=== PATIENT | female | born 1970 | race Caucasian/White ===

== ENCOUNTER 2020-05-22 13:41 | Emergency (ER) | payer OTHER, SELFPAY ==
[~2020-05-22] VITALS: Ht 167.6 cm; Wt 76.2 kg
--- NOTE | 2020-05-22 13:43 | NUR ---
BROUGHT TO TENT AND TRIAGED. AWAITING DR VISIT IN TENT
[2020-05-22 13:45] VITALS: BP_SYST 119
--- NOTE | 2020-05-22 13:50 | NUR ---
Pt in the tent, A&Ox4, pt presents to ER with cough congestion and bodyaches, pt states he was exposed to covid , skin pink and warm, cap refill <3.
--- NOTE | 2020-05-22 14:19 | NUR ---
DR COHEN OUT TO EVALUATE PT IN TENT
[2020-05-22 14:30] VITALS: BP_SYST 119
--- NOTE | 2020-05-22 14:45 | NUR ---
Patient given written and verbal discharge instructions and verbalizes understanding. ER MD discussed with patient the results and treatment provided. Patient in stable condition. ID arm band removed. Rx of Zinc, Azithromycin and Prednisone given. Patient educated on pain management and to follow up with PMD. Pain Scale 0/10 . Opportunity for questions provided and answered. Medication side effect fact sheet provided.
== END 2020-05-22 14:30 | disposition home or self-care (01) ==
LOC: SED 13:41
DX: U07.1 COVID-19 (principal)
CPT/HCPCS: 36415; 71045; 99284

== ENCOUNTER 2020-08-08 07:22 | Outpatient (CLI) | payer OTHER ==
[2020-08-08 08:33] LABS: BASOPHILS % (AUTO) 0.9 % (0.0-2.0); EOSINOPHILS # (AUTO) 0.1 K/uL (0.0-0.4); HEMATOCRIT 40.9 % (36-48); HEMOGLOBIN 13.4 g/dL (12.0-16.0); LYMPHOCYTES # (AUTO) 2.7 K/uL (1.0-5.5); LYMPHOCYTES % (AUTO) 50.4 % (20.5-51.5); MEAN CORPUSCULAR HEMOGLOBIN 30 pg (27-31); MEAN CORPUSCULAR HGB CONC 33 % (32-36); MEAN CORPUSCULAR VOLUME 92 fL (79.0-98.0); MONOCYTES # (AUTO) 0.3 K/uL (0.0-1.0); MONOCYTES % (AUTO) 5.8 % (1.7-9.3); NEUTROPHILS # (AUTO) 2.3 K/uL (1.8-7.7); NEUTROPHILS % (AUTO) 41.9 % (40.0-70.0); PLATELET COUNT (AUTO) 226 K/uL (130-430); RED BLOOD CELL COUNT(AUTO) 4.45 MIL/uL (4.2-6.2); RED CELL DISTRIBUTION WIDTH 14.1 % (9.0-15.0); WHITE BLOOD COUNT (AUTO) 5.4 K/uL (4.8-10.8)
[2020-08-08 09:02] LABS: ALBUMIN 3.9 g/dL (3.4-4.8); CALCIUM 8.8 mg/dL (8.4-11.0); CREATININE 0.77 mg/dL (0.55-1.30); POTASSIUM 4.4 mmol/L (3.5-5.1); THYROID STIMULATING HORMONE 4.09 uIu/mL (0.36-3.74)
== END 2020-08-08 20:46 | disposition home or self-care (01) ==
LOC: SLB 07:22
PROVIDERS: ATTEND General Practice
DX: Z00.00 Encounter for general adult medical examination without abnormal findings (principal); E55.9 Vitamin D deficiency, unspecified
CPT/HCPCS: 36415; 80053; 80061; 82306; 84443-TC; 85025; 86803

== ENCOUNTER 2020-11-24 11:00 | Outpatient (CLI) | payer OTHER ==
[2020-11-24 12:19] LABS: FREE T4 (FREE THYROXINE) 1.1 ng/dl (0.8-1.5); THYROID STIMULATING HORMONE 3.83 uIu/mL (0.36-3.74)
== END 2020-11-24 20:41 | disposition home or self-care (01) ==
LOC: SLB 11:00
PROVIDERS: ATTEND General Practice
DX: E03.9 Hypothyroidism, unspecified (principal)
CPT/HCPCS: 36415; 84439; 84443; 84480